=== PATIENT | female | born 1980 | race Caucasian/White ===

== ENCOUNTER 2021-12-11 12:44 | Emergency (ER) | payer MEDICAID ==
[~2021-12-11] VITALS: Ht 160 cm; Wt 66.0 kg
[2021-12-11 12:56] VITALS: BP 116/81
[2021-12-11] MEDS ORDERED: ACETAMINOPHEN 325MG TABLET PO PRN (13:00)
[2021-12-11 13:19] LABS: EOSINOPHILS % 1.4 % (0.0-5.0); HEMATOCRIT. 38.2 % (36.0-48.0); HEMOGLOBIN. 12.7 g/dL (12.0-16.0); MEAN CORPUSCULAR HEMOGLOBIN 29.8 pg (28.0-32.0); MEAN CORPUSCULAR VOLUME 89.8 fL (81.0-99.0); MEAN PLATELET VOLUME 8.4 fl (7.4-10.4); MONOCYTES % 7.3 % (2.0-8.0); NEUTROPHILS % 54.3 % (40.0-76.0); PLATELET 226 x1000/uL (130-400); RED BLOOD CELL COUNT 4.25 mill/uL (4.2-5.4); RED CELL DISTRIBUTION WIDTH 13.3 % (11.6-14.6)
[2021-12-11 13:27] LABS: CHLORIDE 107 mEq/L (98-107)
[2021-12-11 13:51] LABS: B-HCG QUANTITATIVE 4347 mIU/mL (<3)
[2021-12-11 18:48] LABS: CLARITY URINE CLEAR (CLEAR); COLOR URINE YELLOW (YELLOW); KETONES URINE 1+ (NEGATIVE); LEUKOCYTE ESTERASE URINE NEGATIVE (NEGATIVE); NITRITE URINE NEGATIVE (NEGATIVE); OCCULT BLOOD URINE TRACE (NEGATIVE); PH URINE 5.5 (4.5-8.0); PROTEIN URINE NEGATIVE (NEGATIVE); UROBILINOGEN URINE 0.2 E.U./dL (0.2-1.0)
== END 2021-12-11 19:23 | disposition home or self-care (01) ==
LOC: ER 12:44
DX: O26.891 Other specified pregnancy related conditions, first trimester (principal); R10.31 Right lower quadrant pain; R11.0 Nausea; R51.9 Headache, unspecified; O09.521 Supervision of elderly multigravida, first trimester; Z3A.01 Less than 8 weeks gestation of pregnancy
CPT/HCPCS: 36415; 76801; 80053; 81003; 84702; 85025; 86850; 86900; 93005; 99285

== ENCOUNTER 2023-02-05 16:28 | Emergency (ER) | payer MEDICAID ==
[~2023-02-05] VITALS: Ht 157.5 cm; Wt 64.0 kg
[2023-02-05 18:02] LABS: BASOPHILS % 1.2 % (0.0-2.0); EOSINOPHILS % 2.2 % (0.0-5.0); HEMATOCRIT. 36.8 % (36.0-48.0); HEMOGLOBIN. 12.7 g/dL (12.0-16.0); LYMPHOCYTES % 49.3 % (20.0-50.0); MEAN CORPUSCULAR HEMOGLOBIN 31.2 pg (28.0-32.0); MEAN CORPUSCULAR VOLUME 90.5 fL (81.0-99.0); MEAN PLATELET VOLUME 8.7 fl (7.4-10.4); MONOCYTES % 6.9 % (2.0-8.0); NEUTROPHILS % 40.4 % (40.0-76.0); PLATELET 221 x1000/uL (130-400); RED BLOOD CELL COUNT 4.07 mill/uL (4.2-5.4); RED CELL DISTRIBUTION WIDTH 12.9 % (11.6-14.6)
[2023-02-05 18:15] LABS: CHLORIDE 109 mEq/L (98-107)
[2023-02-05 18:27] LABS: HCG SCREEN NEGATIVE
[2023-02-05] MEDS ORDERED: VISCOUS LIDOCAINE 2% 15 ML UDC PO STA (22:48)
[2023-02-05] MEDS ORDERED: MAGNESIUM/ALUMINUM HYDROXIDE/SIMETHICONE 30ML UDC PO STA (22:48)
[2023-02-05 22:56] LABS: CLARITY URINE CLEAR (CLEAR); COLOR URINE YELLOW (YELLOW); KETONES URINE NEGATIVE (NEGATIVE); LEUKOCYTE ESTERASE URINE NEGATIVE (NEGATIVE); NITRITE URINE NEGATIVE (NEGATIVE); OCCULT BLOOD URINE TRACE (NEGATIVE); PROTEIN URINE NEGATIVE (NEGATIVE); SPECIFIC GRAVITY URINE 1.029 (1.005-1.030)
[2023-02-05] MEDS ORDERED: MAGNESIUM/ALUMINUM HYDROXIDE/SIMETHICONE 30ML UDC PO NR (23:15)
[2023-02-05] MEDS ORDERED: MAG-55 MT (23:59)
[2023-02-06 00:40] VITALS: BP 112/65
== END 2023-02-06 00:44 | disposition home or self-care (01) ==
LOC: ER 16:28
DX: R10.30 Lower abdominal pain, unspecified (principal)
CPT/HCPCS: 36415; 71045; 80053; 81003; 84484; 84703; 85025; 99284